=== PATIENT | male | born 1970 | race Caucasian/White ===

== ENCOUNTER 2017-02-04 10:36 | Inpatient (IN) | payer OTHER, MEDICARE ==
[2017-02-04] VITALS (7 sets, daily range): BP systolic 95–122; BP diastolic 54–94; PULSE 108–118; RESP 16–20; TEMP 99.7–100.6; O2SAT 97–98
[~2017-02-04] VITALS: Ht 175.3 cm; Wt 75.4 kg
[~2017-02-04 10:36] MED LIST: CLON1 PO; DEPA250T PO; IBUP-238 PO; LAMO100 PO; METO100T PO; NEUR600T PO; PAXI20TA26 PO
[2017-02-04] MEDS ORDERED: ONDANSETRON HCL 4 MG/2 ML VIAL IV PUSH ONE (11:15)
[2017-02-04] MEDS ORDERED: SODIUM CHLOR 0.9% 1000 ML INJ 1,000 ML IV ONE ×2 (11:15→15:30)
[2017-02-04] MEDS ORDERED: ACETAMINOPHEN 325 MG TAB PO ONE (11:15)
[2017-02-04] MEDS ORDERED: SODIUM CHLORIDE 0.9% FLUSH 10 ML FLUSH IVF PRN (11:15)
--- NOTE | 2017-02-04 11:20 | PD ---
HPI Chief Complaint: General Weakness Time Seen by Provider: 11:06 Travel History International Travel<30 days: No Contact w/Intl Traveler<30days: No Traveled to known affect area: No History of Present Illness HPI 46-year-old male presents to the emergency department for evaluation of generalized weakness, nausea, vomiting, diarrhea, fever that started this morning. Patient reports 3-4 episodes of vomiting and diarrhea. No blood in his stool or emesis. Patient reports generalized weakness, but no syncope. He denies any chest pain. He does report some mild shortness of breath and mild cough. He reports abdominal discomfort, but no pain. Patient did not know he had a fever and has not taken anything for his fever. Patient has not had an influenza vaccination this year. He reports history of hypertension and hyperlipidemia, but is not currently on any prescribed medications. He denies any IV drug use. He reports no pain at this time. No exacerbating or alleviating factors. He does state that he feels dehydrated. Moderate severity. PFSH Past Medical History Arthritis: Yes (INFLAMED ARTHRITIC DISC.) Asthma: Yes Blood Disorders: No Anxiety: Yes Depression: Yes Cancer: No Cardiovascular Problems: Yes Diabetes: No Endocrine: No Genitourinary: No Headaches: Yes Hypertension: Yes Immune Disorder: No Implanted Vascular Access Dvce: No Musculoskeletal: Yes (LEGS AND ARMS ARE WEAK. WALKS WITH CANE AT TIMES.) Neurologic: Yes Psychiatric: Yes Reproductive: No Respiratory: Yes Seizures: Yes (LAST SEIZURE WAS 2 1/2 YEARS AGO.) Tetanus Vaccination: > 5 Years Influenza Vaccination: No Past Surgical History Surgical History: No Previous Surgery Other Surgery: No Social History Alcohol Use: Yes ("I DRINIK NOS AND THEN." PT DRANK 5 BEERS TONIGHT.) Tobacco Use: No (QUIT SMOKING 1997.) Substance Use: No Allergies-Medications (Allergen,Severity, Reaction): Coded Allergies: No Known Allergies (Verified Adverse Reaction, Unknown, 02/04/17) Reported Meds & Prescriptions Reported Meds & Active Scripts Active Review of Systems Except as stated in HPI: all other systems reviewed are Neg Physical Exam Narrative GENERAL: Well-nourished, well-developed male patient, temp 100.6. SKIN: Focused skin assessment warm/dry. HEAD: Normocephalic. Atraumatic. ENT: Mucosa pink and moist. No erythema or exudates. No uvular edema. No uvular , palatal, or tonsillar deviation. Airway patent. Nasal turbinates appear normal without nasal blood, purulent drainage or septal hematoma. Bilateral tympanic membranes are clear without erythema or perforation. EYES: No scleral icterus. No injection or drainage. NECK: Supple, trachea midline. No JVD or lymphadenopathy. CARDIOVASCULAR: Regular rate and rhythm without murmurs, gallops, or rubs. RESPIRATORY: Breath sounds equal bilaterally. No accessory muscle use. Lung sounds are clear to auscultation. GASTROINTESTINAL: Abdomen soft, non-tender, nondistended. No abdominal pain to palpation. MUSCULOSKELETAL: No cyanosis, or edema. BACK: Nontender without obvious deformity. No CVA tenderness. Data Data Last Documented VS Vital Signs Date Time Temp Pulse Resp B/P (MAP) Pulse Ox O2 Delivery O2 Flow Rate FiO2 02/04/17 15:12 118 18 96/55 (69) 97 Room Air 02/04/17 10:38 100.6 Orders Orders Complete Blood Count With Diff (02/04/17 11:15) Comprehensive Metabolic Panel (02/04/17 11:15) Urinalysis - C+S If Indicated (02/04/17 11:15) Lipase (02/04/17 11:15) Iv Access Insert/Monitor (02/04/17 11:15) Ecg Monitoring (02/04/17 11:15) Oximetry (02/04/17 11:15) Ondansetron Inj (Zofran Inj) (02/04/17 11:15) Sodium Chlor 0.9% 1000 Ml Inj (Ns 1000 M (02/04/17 11:15) Sodium Chloride 0.9% Flush (Ns Flush) (02/04/17 11:15) Blood Culture (02/04/17 11:15) Chest, Single Ap (02/04/17 11:15) Acetaminophen (Tylenol) (02/04/17 11:15) Lactic Acid Sepsis Protocol (02/04/17 11:15) Influenzae A/B Antigen (02/04/17 11:15) Ct Abd/Pel W Iv Contrast(Rout) (02/04/17 ) Iohexol 350 Inj (Omnipaque 350 Inj) (02/04/17 14:33) Sodium Chlor 0.9% 1000 Ml Inj (Ns 1000 M (02/04/17 15:30) Metronidazole 500 Mg Inj (Flagyl 500 Mg (02/04/17 15:30) Ciprofloxacin 400 Mg Premix (Cipro 400 M (02/04/17 15:30) Admit Order (Ed Use Only) (02/04/17 16:03) Labs Laboratory Tests Test 02/04/17 11:00 02/04/17 11:25 02/04/17 12:07 White Blood Count 12.0 TH/MM3 Red Blood Count 5.31 MIL/MM3 Hemoglobin 16.7 GM/DL Hematocrit 47.8 % Mean Corpuscular Volume 89.9 FL Mean Corpuscular Hemoglobin 31.4 PG Mean Corpuscular Hemoglobin Concent 34.9 % Red Cell Distribution Width 12.7 % Platelet Count 216 TH/MM3 Mean Platelet Volume 8.9 FL CBC Comment AUTO DIFF Differential Total Cells Counted 100 Neutrophils % (Manual) 74 % Band Neutrophils % 15 % Lymphocytes % 2 % Monocytes % 9 % Neutrophils # (Manual) 10.7 TH/MM3 Differential Comment FINAL DIFF MANUAL Platelet Estimate NORMAL Platelet Morphology Comment NORMAL Red Cell Morphology Comment NORMAL Blood Urea Nitrogen 16 MG/DL Creatinine 0.90 MG/DL Random Glucose 104 MG/DL Total Protein 8.3 GM/DL Albumin 4.2 GM/DL Calcium Level 9.0 MG/DL Alkaline Phosphatase 109 U/L Aspartate Amino Transf (AST/SGOT) 30 U/L Alanine Aminotransferase (ALT/SGPT) 28 U/L Total Bilirubin 0.4 MG/DL Sodium Level 139 MEQ/L Potassium Level 4.0 MEQ/L Chloride Level 103 MEQ/L Carbon Dioxide Level 28.9 MEQ/L Anion Gap 7 MEQ/L Estimat Glomerular Filtration Rate 92 ML/MIN Lipase 221 U/L Lactic Acid Level 1.2 mmol/L Urine Color YELLOW Urine Turbidity CLEAR Urine pH 5.5 Urine Specific [place] 1.023 Urine Protein NEG mg/dL Urine Glucose (UA) NEG mg/dL Urine Ketones NEG mg/dL Urine Occult Blood TRACE Urine Nitrite NEG Urine Bilirubin NEG Urine Urobilinogen LESS THAN 2.0 MG/DL Urine Leukocyte Esterase NEG Urine RBC 1 /hpf Urine WBC LESS THAN 1 /hpf Urine Squamous Epithelial Cells <1 /hpf Urine Mucus FEW /lpf Microscopic Urinalysis Comment CULT NOT INDICATED MDM Medical Decision Making Medical Screen Exam Complete: Yes Emergency Medical Condition: Yes Medical Record Reviewed: Yes Interpretation(s) Last Impressions Chest X-Ray 02/04/17 1115 Signed Impressions: Service Date/Time: Saturday, February 04, 2017 11:35 - CONCLUSION: 1. No acute cardiopulmonary disease. Adan Alvarado MD Abdomen/Pelvis CT 02/04/17 0000 Signed Impressions: Service Date/Time: Saturday, February 04, 2017 14:16 - CONCLUSION: 1. Multiple loops of nondistended fluid-filled small bowel with questionable focal small bowel wall thickening involving a loop of jejunum in the left upper quadrant. Overall, findings are most consistent with enteritis. Pattern would be atypical for inflammatory bowel disease. 2. Appendix is visualized and normal. Adan Alvarado MD Differential Diagnosis Gastroenteritis versus viral syndrome versus influenza versus electrolyte abnormality versus dehydration Narrative Course 46-year-old male presents to the emergency department for evaluation of fever, generalized weakness, nausea, vomiting, diarrhea that started today. IV access was established. CBC, CMP, UA, lipase, lactic acid, and influenza, blood cultures 2, chest x-ray are ordered and pending. Patient is given normal saline 1 L IV bolus, Zofran 4 mg IV, Tylenol 650 mg by mouth. CBC shows leukocytosis 12.0 with 15 band neutrophils. CMP is unremarkable. Lipase is 221. Lactic acid is 1.2. UA is negative for acute infection. Influenza is negative. Chest x-ray shows no acute cardiopulmonary abnormality. Ct abdomen/pelvis is ordered due to bandemia and shows Multiple loops of nondistended fluid-filled small bowel with questionable focal small bowel wall thickening involving a loop of jejunum in the left upper quadrant. Overall, findings are most consistent with enteritis. Pattern would be atypical for inflammatory bowel disease; Appendix is visualized and normal. Patient is given by mouth challenge. He is able to tolerate fluids. Patient is now tachycardic, HR 130 and hypotensive, 96/65. Patient is given cipro 400 mg IV, Flagyl 500 mg IV, NS 1 L IV bolus. He will be admitted. Sepsis Criteria SIRS Criteria (2 or more): Heart rate over 90, WBC > 55725, < 4000 or > 10% bands Sepsis Criteria (SIRS+source): Infect source susp/known Diagnosis Primary Impression: Enteritis Admitting Information Admitting Physician Requests: Admit Perla Varghese Feb 04, 2017 11:20
[2017-02-04 11:35] LABS: HEMATOCRIT 47.8 % (39.0-51.0); HEMOGLOBIN 16.7 GM/DL (13.0-17.0); MEAN CELL VOLUME 89.9 FL (80.0-100.0); MEAN CORPUSCULAR HEMOGLOBIN 31.4 PG (27.0-34.0); MEAN CORPUSCULAR HGB CONC 34.9 % (32.0-36.0); MEAN PLATELET VOLUME 8.9 FL (7.0-11.0); PLATELET COUNT 216 TH/MM3 (150-450); RED BLOOD COUNT 5.31 MIL/MM3 (4.50-5.90); RED CELL DISTRIBUTION WIDTH 12.7 % (11.6-17.2)
[2017-02-04 11:52] LABS: ALBUMIN 4.2 GM/DL (3.4-5.0); AST (GOT) 30 U/L (15-37); BICARBONATE 28.9 MEQ/L (21.0-32.0); BLOOD UREA NITROGEN 16 MG/DL (7-18); CHLORIDE 103 MEQ/L (98-107); GLOMERULAR FILTRATION RATE 92 ML/MIN (>89); GLUCOSE,RANDOM 104 MG/DL (74-106); LIPASE 221 U/L (73-393); SODIUM (NA) 139 MEQ/L (136-145)
[2017-02-04 11:53] LABS: ALT (GPT) 28 U/L (12-78)
[2017-02-04 11:56] LABS: ALKALINE PHOSPHATASE 109 U/L (45-117); TOTAL BILIRUBIN ADULT 0.4 MG/DL (0.2-1.0); TOTAL PROTEIN 8.3 GM/DL (6.4-8.2)
--- NOTE | 2017-02-04 12:10 | RADRPT ---
EXAM DATE/TIME: 02/04/2017 11:35 [facility] COMPARISON: No previous studies available for comparison. INDICATIONS : Patient complains of cough and shortness of breath. MEDICAL HISTORY : None. SURGICAL HISTORY : None. ENCOUNTER: Initial ACUITY: 1 day PAIN SCORE: 0/10 LOCATION: chest FINDINGS: A single view of the chest demonstrates the lungs to be symmetrically aerated without evidence of mas s, infiltrate or effusion. The cardiomediastinal contours are unremarkable. Focal deformity of the l eft posterior consistent with healed fracture. CONCLUSION: 1. No acute cardiopulmonary disease. Adan Alvarado MD on February 04, 2017 at 12:07 Board Certified Radiologist. This report was verified electronically.
[2017-02-04 12:19] LABS: BANDS 15 % (0-6); LYMPHOCYTES 2 % (9-44); MONOCYTES 9 % (0-8); NEUTROPHIL # MANUAL DIFF 10.7 TH/MM3 (1.8-7.7); POLYS (SEG NEUTROPHILS) 74 % (16-70)
[2017-02-04 12:29] LABS: BILIRUBIN, URINE NEG (NEG); BLOOD, URINE TRACE (NEG); GLUCOSE,URINE NEG (NEG); KETONE, URINE NEG (NEG); MUCUS URINE FEW /lpf (OCC); NITRITE,URINE NEG (NEG); PH, URINE 5.5 (5.0-8.5); SQUAMOUS EPITHELIAL CELL URINE <1 /hpf (0-5); URINE COLOR YELLOW (YELLW/STRAW); URINE LEUKOCYTE ESTERASE NEG (NEG)
[2017-02-04] MEDS ORDERED: IOHEXOL 350 MG/ML 10 ML VIAL (for RAD DIAG) IVCONTRAST ONE (14:33)
--- NOTE | 2017-02-04 15:01 | RADRPT ---
EXAM DATE/TIME: 02/04/2017 14:16 [facility] COMPARISON: No previous studies available for comparison. INDICATIONS : Nausea, vomiting and diarrhea today. IV CONTRAST: 72 cc Omnipaque 350 (iohexol) IV ORAL CONTRAST: No oral contrast ingested. RADIATION DOSE: 6.64 CTDIvol (mGy) MEDICAL HISTORY : Hypertension. SURGICAL HISTORY : None. ENCOUNTER: Initial ACUITY: 1 day PAIN SCALE: 2/10 LOCATION: Bilateral lower quadrant TECHNIQUE: Volumetric scanning of the abdomen and pelvis was performed. Using automated exposure control and ad justment of the mA and/or kV according to patient size, radiation dose was kept as low as reasonably achievable to obtain optimal diagnostic quality images. DICOM format image data is available electro nically for review and comparison. FINDINGS: LOWER LUNGS: The visualized lower lungs are clear. LIVER: Homogeneous density without lesion. There is no dilation of the biliary tree. Gallbladder is moderat jeff distended but otherwise unremarkable by CT. SPLEEN: Normal size without lesion. PANCREAS: Within normal limits. KIDNEYS: Kidneys demonstrate symmetrical enhancement without evidence for radiopaque renal calculi or hydronep hrosis. There is a small subcentimeter hypodense cystic lesion in the inferior pole of the right kidn ey which is too small to fully characterize. ADRENAL GLANDS: Within normal limits. VASCULAR: There is no aortic aneurysm. BOWEL/MESENTERY: Multiple loops of nondistended fluid-filled small bowel throughout the abdomen. Questionable subtle s mall bowel wall thickening involving a focal loop of jejunum in the left upper quadrant. Appendix is visualized and normal in appearance. ABDOMINAL WALL: Within normal limits. RETROPERITONEUM: There is no lymphadenopathy. BLADDER: No wall thickening or mass. REPRODUCTIVE: Within normal limits. INGUINAL: There is no lymphadenopathy or hernia. MUSCULOSKELETAL: Within normal limits for patient age. CONCLUSION: 1. Multiple loops of nondistended fluid-filled small bowel with questionable focal small bowel wall t hickening involving a loop of jejunum in the left upper quadrant. Overall, findings are most consiste nt with enteritis. Pattern would be atypical for inflammatory bowel disease. 2. Appendix is visualized and normal. Adan Alvarado MD on February 04, 2017 at 14:51 Board Certified Radiologist. This report was verified electronically.
[2017-02-04] MEDS ORDERED: ONDA4TAB7 SL (15:10)
[2017-02-04] MEDS ORDERED: CIPR500T2 PO (15:10)
[2017-02-04] MEDS ORDERED: METR-1 PO (15:10)
[2017-02-04] MEDS ORDERED: CIPROFLOXACIN 400 MG PREMIX 200 ML IV ONE (15:30)
[2017-02-04] MEDS ORDERED: metroNIDAZOLE 500 MG INJ 100 ML IV ONE (15:30)
[2017-02-04] MEDS ORDERED: SODIUM CHLORIDE 0.9% FLUSH 10 ML FLUSH IV FLUSH PRN ×2 (16:15)
--- NOTE | 2017-02-04 16:28 | HHI.HP ---
HPI Service [facility] Hospitalists Primary Care Physician Unknown Admission Diagnosis enteritis, sepsis Diagnoses: Chief Complaint: Generalized weakness Nausea, vomiting Diarrhea Travel History International Travel<30 Days: No Contact w/Intl Traveler <30 Da: No Traveled to Known Affected Are: No Sepsis Criteria SIRS Criteria (2 or more): Heart rate over 90, WBC > 42148, < 4000 or > 10% bands Sepsis Criteria (SIRS+source): Infect source susp/known Severe Sepsis (+one): Hypotension Criteria Outcome: Meets sepsis criteria History of Present Illness Written by Blessing Montoya, acting as scribe for Dr. Vaughn on 02/04/17 at 16: 24. This is a 46 yo male with a PMHX significant for legal blindness, hx of intermittent explosive disorder and neuropathy no longer requiring medications who presents to [facility] with complaints of generalized weakness, abdominal pain, diarrhea, nausea and vomiting for the past day. Patient reports waking up this morning feeling more tired but otherwise normal. He ate breakfast and then went to the mall per his usual routine. Shortly after arriving at the mall, he developed sudden onset of diffuse abdominal pain, shakiness, weakness and intractable vomiting and diarrhea. He denies seeing in blood in the stool or vomit but he does not see very well due to being legally blind. He states some days he is able to see better than others but today he is not able to see very well. Patient reports feeling feverish this morning but did not record a temperature. Patient states he has not felt well for the past few months due to increased fatigue. Patient reports eating pork last night but no one else is sick who ate the same dinner. He denies any change in his diet. In the ED, CT abd/pelvis was done showing multiple loops of nondistended fluid-filled small bowel with questionable focal small bowel wall thickening involving a loop of jejunum in the left upper quadrant. Overall, findings are most consistent with enteritis. Patient has a temperature of 100.6 and CBC revealed elevated white count and bandemia. Patient was also found to be hypotensive. Review of Systems Except as stated in HPI: all other systems reviewed are Neg Past Family Social History Past Medical History Legally blind Hx of intermittent explosive disorder Hx of neuropathy no longer treated with medications Past Surgical History No previous surgeries in the past Reported Medications Patient denies taking any medications at home Allergies: Coded Allergies: No Known Allergies (Verified Adverse Reaction, Unknown, 02/04/17) Active Ordered Medications Current Medications Medications (Trade) Dose Ordered Sig/Cl[place]ord Route Start Time Stop Time Status Last Admin Sodium Chloride 1,000 ml @ 999 mls/hr BOLUS ONCE IV 02/04/17 15:30 02/04/17 16:30 02/04/17 15:19 Metronidazole 100 ml @ 100 mls/hr ONCE ONCE IV 02/04/17 15:30 02/04/17 16:29 02/04/17 15:20 Ciprofloxacin/ Dextrose 200 ml @ 200 mls/hr ONCE ONCE IV 02/04/17 15:30 02/04/17 16:29 02/04/17 15:59 (NS Flush) 2 ml UNSCH PRN IV FLUSH 02/04/17 16:15 (NS Flush) 2 ml BID IV FLUSH 02/04/17 21:00 Sodium Chloride 1,000 ml @ 100 mls/hr Q10H IV 02/04/17 16:11 (NS Flush) 2 ml UNSCH PRN IV FLUSH 02/04/17 16:15 (NS Flush) 2 ml BID IV FLUSH 02/04/17 21:00 (Lactinex) 1 tab Q8H PO 02/04/17 16:15 UNV (Zofran Inj) 4 mg Q6H PRN IV PUSH 02/04/17 16:15 UNV (Lovenox Inj) 40 mg Q24H SQ 02/04/17 16:15 UNV Ciprofloxacin/ Dextrose 200 ml @ 200 mls/hr Q12H IV 02/04/17 16:30 UNV Metronidazole 100 ml @ 100 mls/hr Q6H IV 02/04/17 16:30 UNV Family History DM Dementia Anxiety Social History Patient quit smoking 20 years ago. Patient reports occasional EtOH use. Patient denies any illicit drug use. Physical Exam Vital Signs Vital Signs Date Time Temp Pulse Resp B/P (MAP) Pulse Ox O2 Delivery O2 Flow Rate FiO2 02/04/17 15:12 118 18 96/55 (69) 97 Room Air 02/04/17 13:00 108 18 106/55 (72) 97 Room Air 02/04/17 10:54 108 18 98 Room Air 02/04/17 10:38 100.6 109 16 122/94 (103) 98 Physical Exam GENERAL: This is a well-nourished, well-developed patient, in no apparent distress. Awake and alert. SKIN: No rashes, ecchymoses or lesions. Cool and dry. HEAD: Atraumatic. Normocephalic. No temporal or scalp tenderness. EYES: Pupils equal round and reactive. No scleral icterus. No injection or drainage. Patient is legally blind. ENT: Nose without bleeding or purulent drainage. Throat without erythema, tonsillar hypertrophy or exudate. Uvula midline. Airway patent. Dry mucus membranes. NECK: Trachea midline. No JVD or lymphadenopathy. Supple, nontender, no meningeal signs. CARDIOVASCULAR: Tachycardic without murmurs, gallops, or rubs. RESPIRATORY: Clear to auscultation. Breath sounds equal bilaterally. No wheezes , rales, or rhonchi. GASTROINTESTINAL: Abdomen soft, nondistended. (+)diffuse tenderness to palpation. No hepato-splenomegaly, or palpable masses. No guarding. MUSCULOSKELETAL: Extremities without clubbing, cyanosis, or edema. No joint tenderness, effusion, or edema noted. No calf tenderness. NEUROLOGICAL: Awake and alert. Able to move all extremities spontaneously. Motor and sensory function grossly intact. No focal neurologic findings appreciated. Normal speech. Laboratory Laboratory Tests Test 02/04/17 11:00 02/04/17 11:25 02/04/17 12:07 White Blood Count 12.0 Red Blood Count 5.31 Hemoglobin 16.7 Hematocrit 47.8 Mean Corpuscular Volume 89.9 Mean Corpuscular Hemoglobin 31.4 Mean Corpuscular Hemoglobin Concent 34.9 Red Cell Distribution Width 12.7 Platelet Count 216 Mean Platelet Volume 8.9 CBC Comment AUTO DIFF Differential Total Cells Counted 100 Neutrophils % (Manual) 74 Band Neutrophils % 15 Lymphocytes % 2 Monocytes % 9 Neutrophils # (Manual) 10.7 Differential Comment FINAL DIFF MANUAL Platelet Estimate NORMAL Platelet Morphology Comment NORMAL Red Cell Morphology Comment NORMAL Blood Urea Nitrogen 16 Creatinine 0.90 Random Glucose 104 Total Protein 8.3 Albumin 4.2 Calcium Level 9.0 Alkaline Phosphatase 109 Aspartate Amino Transf (AST/SGOT) 30 Alanine Aminotransferase (ALT/SGPT) 28 Total Bilirubin 0.4 Sodium Level 139 Potassium Level 4.0 Chloride Level 103 Carbon Dioxide Level 28.9 Anion Gap 7 Estimat Glomerular Filtration Rate 92 Lipase 221 Lactic Acid Level 1.2 Urine Color YELLOW Urine Turbidity CLEAR Urine pH 5.5 Urine Specific [place] 1.023 Urine Protein NEG Urine Glucose (UA) NEG Urine Ketones NEG Urine Occult Blood TRACE Urine Nitrite NEG Urine Bilirubin NEG Urine Urobilinogen LESS THAN 2.0 Urine Leukocyte Esterase NEG Urine RBC 1 Urine WBC LESS THAN 1 Urine Squamous Epithelial Cells <1 Urine Mucus FEW Microscopic Urinalysis Comment CULT NOT INDICATED Date/Time Source Procedure Growth Status 02/04/17 11:25 Blood Peripheral Aerobic Blood Culture Pending Received 02/04/17 11:25 Blood Peripheral Anaerobic Blood Culture Pending Received 02/04/17 12:00 Nasal Aspirate Influenza Types A,B Antigen (BOB) - Final NEGATIVE FOR FLU A AND B ANTIGEN.... Complete Result Diagram: 02/04/17 1100 02/04/17 1100 Imaging Last Impressions Chest X-Ray 02/04/17 1115 Signed Impressions: Service Date/Time: Saturday, February 04, 2017 11:35 - CONCLUSION: 1. No acute cardiopulmonary disease. Adan Alvarado MD Abdomen/Pelvis CT 02/04/17 0000 Signed Impressions: Service Date/Time: Saturday, February 04, 2017 14:16 - CONCLUSION: 1. Multiple loops of nondistended fluid-filled small bowel with questionable focal small bowel wall thickening involving a loop of jejunum in the left upper quadrant. Overall, findings are most consistent with enteritis. Pattern would be atypical for inflammatory bowel disease. 2. Appendix is visualized and normal. Adan Alvarado MD Caproni VTE Risk Assessment Caprini VTE Risk Assessment: No/Low Risk (score <= 1) Caprini Risk Assessment Model Point Value = 1 Point Value = 2 Point Value = 3 Point Value = 5 Age 41-60 Minor surgery BMI > 25 kg/m2 Swollen legs Varicose veins or History of unexplained or recurrent spontaneous Oral contraceptives or hormone replacement Sepsis (< 1 month) Serious lung disease, including pneumonia (< 1 month) Abnormal pulmonary function Acute myocardial infarction Congestive heart failure (< 1 month) History of inflammatory bowel disease Medical patient at bed rest Age 61-74 Arthroscopic surgery Major open surgery (> 45 min) Laparoscopic surgery (> 45 min) Malignancy Confined to bed (> 72 hours) Immobilizing plaster cast Central venous access Age >= 75 History of VTE Family history of VTE Factor V Leiden Prothrombin [id number] Lupus anticoagulant Anticardiolipin antibodies Elevated serum homocysteine Heparin-induced thrombocytopenia Other congenital or acquired thrombophilia Stroke (< 1 month) Elective arthroplasty Hip, pelvis, or leg fracture Acute spinal cord injury (< 1 month) Prophylaxis Regimen Total Risk Factor Score Risk Level Prophylaxis Regimen 0-1 Low Early ambulation 2 Moderate Order ONE of the following: *Sequential Compression Device (SCD) *Heparin 5000 units SQ BID 3-4 Higher Order ONE of the following medications: *Heparin 5000 units SQ TID *Enoxaparin/Lovenox 40 mg SQ daily (WT < 150 kg, CrCl > 30 mL/min) *Enoxaparin/Lovenox 30 mg SQ daily (WT < 150 kg, CrCl > 10-29 mL/min) *Enoxaparin/Lovenox 30 mg SQ BID (WT < 150 kg, CrCl > 30 mL/min) AND/OR *Sequential Compression Device (SCD) 5 or more Highest Order ONE of the following medications: *Heparin 5000 units SQ TID (Preferred with Epidurals) *Enoxaparin/Lovenox 40 mg SQ daily (WT < 150 kg, CrCl > 30 mL/min) *Enoxaparin/Lovenox 30 mg SQ daily (WT < 150 kg, CrCl > 10-29 mL/min) *Enoxaparin/Lovenox 30 mg SQ BID (WT < 150 kg, CrCl > 30 mL/min) AND *Sequential Compression Device (SCD) Assessment and Plan Assessment and Plan 46 yo male with a PMHX significant for legal blindness, hx of intermittent explosive disorder and neuropathy no longer requiring medications who presents to [facility] with complaints of generalized weakness, abdominal pain, diarrhea, nausea and vomiting for the past day. Patient meets sepsis criteria with elevated white count, bandemia, tachycardia with HR of 115, hypotension with BP 96/55 and GI source of enteritis - suspect gastroenteritis - CT abd/pelvis - Multiple loops of nondistended fluid-filled small bowel with questionable focal small bowel wall thickening involving a loop of jejunum in the left upper quadrant. Overall, findings are most consistent with enteritis , images personally reviewed - CXR unremarkable, images personally reviewed - influenza negative - lactic acid 1.2 - lipase 221 - patient given IV Flagyl and Cipro in the ED. Continue. - Patient given 2L of IVF in the ED. Continue IVF hydration. - Cdiff and stool studies ordered - monitor white count - monitor heart rate - follow up on blood culture results - regular diet - lactobacillus TID - IV Zofran prn - pain management Legal blindness - fall precautions - patient lives with friends who help care for him - Consult case management DVT prophylaxis - Lovenox 40mg sq This note was transcribed by YULIA Marsh . I, Dr. Jacy Vaughn personally performed the history, physical exam, and medical decision making; and confirmed the accuracy of the information in the transcribed note. Authenticated by Dr. Jacy Vaughn on 02/04/17 at 16:24. Code Status Full code Discussed Condition With ED physician, patient Physician Certification 2 Midnight Certification Type: Admission for Inpatient Services Order for Inpatient Services The services are ordered in accordance with Medicare regulations or non- Medicare payer requirements, as applicable. In the case of services not specified as inpatient-only, they are appropriately provided as inpatient services in accordance with the 2-midnight benchmark. Estimated LOS (days): 3 3 days is the estimated time the patient will need to remain in the hospital, assuming treatment plan goals are met and no additional complications. Post-Hospital Plan: Not yet determined Blessing Montoya Feb 04, 2017 16:28 Jacy Vaughn MD Feb 04, 2017 17:42
[2017-02-04] MEDS: SODIUM CHLOR 0.9% 1000 ML INJ 1,000 ML IV SCH ×2 (16:36→18:35)
[2017-02-04] MEDS: ENOXAPARIN SODIUM 40 MG/0.4 ML SYRINGE SQ SCH (18:34)
[2017-02-04] MEDS: LACTOBACILLUS ACIDOPHILUS TAB PO SCH (18:34)
[2017-02-04] MEDS: metroNIDAZOLE 500 MG INJ 100 ML IV SCH ×2 (18:35→23:25)
[2017-02-04] MEDS: CIPROFLOXACIN 400 MG PREMIX 200 ML IV SCH (19:46)
[2017-02-04] MEDS: SODIUM CHLORIDE 0.9% FLUSH 10 ML FLUSH IV FLUSH SCH ×2 (19:47)
[2017-02-04] MEDS ORDERED: metroNIDAZOLE 500 MG TAB PO SCH (21:00)
[2017-02-05] VITALS (10 sets, daily range): BP systolic 95–117; BP diastolic 53–67; PULSE 77–108; RESP 16–20; TEMP 98.3–100.9; O2SAT 94–95
[2017-02-05] MEDS: LACTOBACILLUS ACIDOPHILUS TAB PO SCH ×3 (01:49→16:50)
[2017-02-05] MEDS: ACETAMINOPHEN 325 MG TAB PO PRN ×2 (04:26→23:35)
[2017-02-05] MEDS: metroNIDAZOLE 500 MG INJ 100 ML IV SCH ×4 (04:28→23:35)
[2017-02-05] MEDS: CIPROFLOXACIN 400 MG PREMIX 200 ML IV SCH ×2 (05:32→18:17)
[2017-02-05 07:09] LABS: AUTOMATED NEUTROPHIL # 6.2 TH/MM3 (1.8-7.7); BASOPHIL % 0.4 % (0.0-2.0); HEMATOCRIT 37.8 % (39.0-51.0); HEMOGLOBIN 13.1 GM/DL (13.0-17.0); LYMPH % 5.6 % (9.0-44.0); LYMPHOCYTE # 0.4 TH/MM3 (1.0-4.8); MEAN CELL VOLUME 88.3 FL (80.0-100.0); MEAN CORPUSCULAR HEMOGLOBIN 30.6 PG (27.0-34.0); MEAN CORPUSCULAR HGB CONC 34.6 % (32.0-36.0); MEAN PLATELET VOLUME 8.8 FL (7.0-11.0); MONO % 7.3 % (0.0-8.0); MONOCYTE # 0.5 TH/MM3 (0-0.9); NEUT % 86.7 % (16.0-70.0); PLATELET COUNT 171 TH/MM3 (150-450); RED BLOOD COUNT 4.28 MIL/MM3 (4.50-5.90); RED CELL DISTRIBUTION WIDTH 12.6 % (11.6-17.2); WHITE BLOOD COUNT 7.1 TH/MM3 (4.0-11.0)
[2017-02-05 07:40] LABS: BICARBONATE 24.2 MEQ/L (21.0-32.0); CALCIUM 7.7 MG/DL (8.5-10.1); CREATININE 0.92 MG/DL (0.60-1.30)
[2017-02-05] MEDS: SODIUM CHLORIDE 0.9% FLUSH 10 ML FLUSH IV FLUSH SCH ×3 (09:00→23:37)
[2017-02-05] MEDS ORDERED: CIPROFLOXACIN 500 MG TAB PO SCH (09:00)
[2017-02-05] MEDS ORDERED: POTASSIUM CHLORIDE 20 MEQ CONTROLLED RELEASE TAB PO ONE (09:45)
[2017-02-05] MEDS: SODIUM CHLOR 0.9% 1000 ML INJ 1,000 ML IV SCH (10:15)
--- NOTE | 2017-02-05 14:02 | HHI.PR ---
Subjective Remarks Patient seen earlier this morning. He still reports some nausea but no vomiting this morning. Potassium is low Objective Vitals Vital Signs Date Time Temp Pulse Resp B/P (MAP) Pulse Ox O2 Delivery O2 Flow Rate FiO2 02/05/17 12:02 98.6 89 20 110/55 (73) 94 02/05/17 12:00 83 02/05/17 08:30 Room Air 02/05/17 08:02 98.3 88 20 109/53 (71) 95 02/05/17 08:00 90 02/05/17 04:00 Room Air 02/05/17 04:00 100.0 101 16 101/53 (69) 94 02/05/17 04:00 105 02/05/17 02:29 21 02/05/17 00:00 100.9 106 16 95/53 (67) 94 02/05/17 00:00 108 02/05/17 00:00 Room Air 02/04/17 20:00 99.7 113 17 102/54 (70) 98 02/04/17 20:00 111 02/04/17 20:00 Room Air 02/04/17 18:46 100.5 111 20 101/55 (70) 97 02/04/17 18:33 02/04/17 17:13 112 18 95/54 (68) 97 Room Air 02/04/17 16:53 97 21 02/04/17 15:12 118 18 96/55 (69) 97 Room Air I/O 02/04/17 02/04/17 02/04/17 02/05/17 02/05/17 02/05/17 07:00 15:00 23:00 07:00 15:00 23:00 Intake Total 1000 ml 1600 ml 320 ml Output Total 250 ml Balance 1000 ml 1600 ml 70 ml Intake Oral 120 ml IV Total 1000 ml 1600 ml 200 ml Output Urine Total 250 ml # Voids 1 # Bowel Movements 2 Result Diagram: 02/05/1763902/05/1740 Objective Remarks GENERAL: Patient is blind. No acute distress. CARDIOVASCULAR: Normal rate and regular rhythm without murmurs, gallops, or rubs. RESPIRATORY: Good respiratory efforts. Breath sounds equal and clear to auscultation bilaterally. GASTROINTESTINAL: Abdomen soft, non-tender, non-distended. Normal active bowel sounds MUSCULOSKELETAL: Extremities without cyanosis, or edema. NEURO: Alert & Oriented x4 to person, place, time, situation. Normal speech PSYCH: Appropriate mood and affect. A/P Assessment and Plan 46 yo male with a PMHX significant for legal blindness, hx of intermittent explosive disorder and neuropathy no longer requiring medications who presents to [facility] with complaints of generalized weakness, abdominal pain, diarrhea, nausea and vomiting for the past day. Patient meets sepsis criteria with elevated white count, bandemia, tachycardia with HR of 115, hypotension with BP 96/55 and GI source of enteritis - suspect gastroenteritis - CT abd/pelvis - Multiple loops of nondistended fluid-filled small bowel with questionable focal small bowel wall thickening involving a loop of jejunum in the left upper quadrant. Overall, findings are most consistent with enteritis - Continue Flagyl and Cipro - Continue IVF hydration. - follow up on blood culture results - regular diet - lactobacillus TID - IV Zofran prn - pain management Legal blindness - fall precautions - patient lives with friends who help care for him - case management DVT prophylaxis - Lovenox 40mg sq Discharge Planning Continue to monitor. Plan to transition to oral antibiotics in the morning. If he continues to improve, he may be discharged tomorrow. Leonila Corrales MD Feb 05, 2017 14:02
[2017-02-05] MEDS: ENOXAPARIN SODIUM 40 MG/0.4 ML SYRINGE SQ SCH (16:51)
[2017-02-06] VITALS (12 sets, daily range): BP systolic 102–129; BP diastolic 55–65; PULSE 69–96; RESP 18–20; TEMP 97.8–99.4; O2SAT 94–97
[2017-02-06] MEDS: LACTOBACILLUS ACIDOPHILUS TAB PO SCH ×3 (01:19→17:43)
[2017-02-06] MEDS: metroNIDAZOLE 500 MG INJ 100 ML IV SCH (05:10)
[2017-02-06] MEDS: CIPROFLOXACIN 400 MG PREMIX 200 ML IV SCH (06:34)
[2017-02-06] MEDS: ONDANSETRON HCL 4 MG/2 ML VIAL IV PUSH PRN (06:34)
[2017-02-06 07:43] LABS: BICARBONATE 25.6 MEQ/L (21.0-32.0); CALCIUM 8.3 MG/DL (8.5-10.1); CREATININE 0.65 MG/DL (0.60-1.30)
[2017-02-06] MEDS: SODIUM CHLORIDE 0.9% FLUSH 10 ML FLUSH IV FLUSH SCH ×2 (08:20→20:57)
[2017-02-06] MEDS: metroNIDAZOLE 500 MG TAB PO SCH ×2 (13:28→20:58)
--- NOTE | 2017-02-06 14:06 | HHI.PR ---
Subjective Remarks Patient is having diarrhea. Discussed with nursing staff. He had 3 watery bowel movement this morning. He denies abdominal pain. No nausea or vomiting. He is tolerating a diet. Objective Vitals Vital Signs Date Time Temp Pulse Resp B/P (MAP) Pulse Ox O2 Delivery O2 Flow Rate FiO2 02/06/17 12:01 99.4 74 20 111/58 (75) 94 02/06/17 08:01 98.2 84 20 129/61 (83) 97 02/06/17 04:49 78 02/06/17 00:01 80 02/06/17 00:00 98.8 96 20 102/58 (73) 96 02/05/17 21:30 77 02/05/17 20:00 98.8 80 18 117/67 (84) 95 02/05/17 16:01 98.7 96 20 101/59 (73) 95 02/05/17 16:00 84 I/O 02/05/17 02/05/17 02/05/17 02/06/17 02/06/17 02/06/17 07:00 15:00 23:00 07:00 15:00 23:00 Intake Total 320 ml 100 ml 1451 ml 100 ml Output Total 250 ml 600 ml 700 ml Balance 70 ml 100 ml 851 ml -600 ml Intake Oral 120 ml 720 ml IV Total 200 ml 100 ml 731 ml 100 ml Output Urine Total 250 ml 600 ml 700 ml # Voids 1 # Bowel Movements 2 1 0 Result Diagram: 02/05/17 0640 02/06/17 0650 Objective Remarks GENERAL: Patient is blind. No acute distress. CARDIOVASCULAR: Normal rate and regular rhythm without murmurs, gallops, or rubs. RESPIRATORY: Good respiratory efforts. Breath sounds equal and clear to auscultation bilaterally. GASTROINTESTINAL: Abdomen soft, non-tender, non-distended. Normal active bowel sounds MUSCULOSKELETAL: Extremities without cyanosis, or edema. NEURO: Alert & Oriented x4 to person, place, time, situation. Normal speech PSYCH: Appropriate mood and affect. A/P Assessment and Plan 46 yo male with a PMHX significant for legal blindness, hx of intermittent explosive disorder and neuropathy no longer requiring medications who presents to [facility] with complaints of generalized weakness, abdominal pain, diarrhea, nausea and vomiting for the past day. Patient meets sepsis criteria with elevated white count, bandemia, tachycardia with HR of 115, hypotension with BP 96/55 and GI source of enteritis - suspect gastroenteritis - CT abd/pelvis - Multiple loops of nondistended fluid-filled small bowel with questionable focal small bowel wall thickening involving a loop of jejunum in the left upper quadrant. Overall, findings are most consistent with enteritis - Continue Flagyl and Cipro - Continue IVF hydration. - follow up on blood culture results - regular diet - lactobacillus TID - IV Zofran prn - pain management - Patient is having diarrhea. Obtain stool cultures, rule out C. difficile. Legal blindness - fall precautions - patient lives with friends who help care for him - case management DVT prophylaxis - Lovenox 40mg sq Discharge Planning Continue to monitor. Transition to oral antibiotics today. Follow up on stool studies. Leonila Corrales MD Feb 06, 2017 14:06
[2017-02-06] MEDS: ENOXAPARIN SODIUM 40 MG/0.4 ML SYRINGE SQ SCH (17:44)
[2017-02-06] MEDS: CIPROFLOXACIN 500 MG TAB PO SCH (20:58)
[2017-02-06] MEDS: ACETAMINOPHEN 325 MG TAB PO PRN (20:58)
[2017-02-07] VITALS (7 sets, daily range): BP systolic 110–114; BP diastolic 55–72; PULSE 65–82; RESP 17–18; TEMP 97.5–98.7; O2SAT 96–97
[2017-02-07] MEDS ORDERED: diphenhydrAMINE HCL 25 MG CAP PO ONE (00:15)
[2017-02-07] MEDS ORDERED: diphenhydrAMINE HCL 25 MG CAP PO PRN (00:30)
[2017-02-07] MEDS: LACTOBACILLUS ACIDOPHILUS TAB PO SCH ×2 (00:49→08:42)
[2017-02-07] MEDS: metroNIDAZOLE 500 MG TAB PO SCH ×2 (05:13→13:02)
[2017-02-07 07:16] LABS: HEMATOCRIT 39.2 % (39.0-51.0); MEAN CELL VOLUME 88.4 FL (80.0-100.0); MEAN CORPUSCULAR HEMOGLOBIN 31.6 PG (27.0-34.0); MEAN CORPUSCULAR HGB CONC 35.8 % (32.0-36.0); MEAN PLATELET VOLUME 9.4 FL (7.0-11.0); PLATELET COUNT 183 TH/MM3 (150-450); RED BLOOD COUNT 4.44 MIL/MM3 (4.50-5.90); RED CELL DISTRIBUTION WIDTH 12.6 % (11.6-17.2); WHITE BLOOD COUNT 5.2 TH/MM3 (4.0-11.0)
[2017-02-07 07:24] LABS: CALCIUM 8.3 MG/DL (8.5-10.1); CREATININE 0.66 MG/DL (0.60-1.30)
[2017-02-07] MEDS: SODIUM CHLORIDE 0.9% FLUSH 10 ML FLUSH IV FLUSH SCH (08:17)
[2017-02-07] MEDS: CIPROFLOXACIN 500 MG TAB PO SCH (08:43)
[2017-02-07] MEDS ORDERED: METR-1 PO (13:35)
[2017-02-07] MEDS ORDERED: CIPR-9 PO (13:35)
--- NOTE | 2017-02-07 14:22 | HHI.DCPOC ---
Discharge Care Plan Diagnosis: (1) Gastroenteritis (2) Enteritis Goals to Promote Your Health * To prevent worsening of your condition and complications * To maintain your health at the optimal level Directions to Meet Your Goals Take your medications as prescribed Follow your dietary instruction Follow activity as directed Keep your appointments as scheduled Take your immunizations and boosters as scheduled If your symptoms worsen call your PCP, if no PCP go to Urgent Care Center or Emergency Room Smoking is Dangerous to Your Health. Avoid second hand smoke Call the 24-hour hour crisis hotline for domestic abuse at Leonila Corrales MD Feb 07, 2017 14:22
--- NOTE | 2017-02-07 14:22 | HHI.DS ---
Discharge Summary Admission Date Feb 04, 2017 at 16:05 Discharge Date: Feb 07, 2017 Admitting Diagnosis enteritis, sepsis (1) Gastroenteritis ICD Code: K52.9 - Noninfective gastroenteritis and colitis, unspecified Procedures None Brief History - From Admission History of present illness from the admitting physician This is a 46 yo male with a PMHX significant for legal blindness, hx of intermittent explosive disorder and neuropathy no longer requiring medications who presents to [facility] with complaints of generalized weakness, abdominal pain, diarrhea, nausea and vomiting for the past day. Patient reports waking up this morning feeling more tired but otherwise normal. He ate breakfast and then went to the mall per his usual routine. Shortly after arriving at the mall, he developed sudden onset of diffuse abdominal pain, shakiness, weakness and intractable vomiting and diarrhea. He denies seeing in blood in the stool or vomit but he does not see very well due to being legally blind. He states some days he is able to see better than others but today he is not able to see very well. Patient reports feeling feverish this morning but did not record a temperature. Patient states he has not felt well for the past few months due to increased fatigue. Patient reports eating pork last night but no one else is sick who ate the same dinner. He denies any change in his diet. In the ED, CT abd/pelvis was done showing multiple loops of nondistended fluid-filled small bowel with questionable focal small bowel wall thickening involving a loop of jejunum in the left upper quadrant. Overall, findings are most consistent with enteritis. Patient has a temperature of 100.6 and CBC revealed elevated white count and bandemia. Patient was also found to be hypotensive. CBC/BMP: 02/07/17 0636 02/07/17 0636 Significant Findings Laboratory Tests Test 02/05/17 06:40 02/06/17 06:50 02/07/17 06:36 Red Blood Count 4.28 MIL/MM3 (4.50-5.90) 4.44 MIL/MM3 (4.50-5.90) Hematocrit 37.8 % (39.0-51.0) Neutrophils (%) (Auto) 86.7 % (16.0-70.0) Lymphocytes (%) (Auto) 5.6 % (9.0-44.0) Lymphocytes # (Auto) 0.4 TH/MM3 (1.0-4.8) Random Glucose 117 MG/DL (74-106) 113 MG/DL (74-106) Calcium Level 7.7 MG/DL (8.5-10.1) 8.3 MG/DL (8.5-10.1) 8.3 MG/DL (8.5-10.1) Potassium Level 3.0 MEQ/L (3.5-5.1) Imaging Last Impressions Chest X-Ray 02/04/17 1115 Signed Impressions: Service Date/Time: Saturday, February 04, 2017 11:35 - CONCLUSION: 1. No acute cardiopulmonary disease. Adan Alvarado MD Abdomen/Pelvis CT 02/04/17 0000 Signed Impressions: Service Date/Time: Saturday, February 04, 2017 14:16 - CONCLUSION: 1. Multiple loops of nondistended fluid-filled small bowel with questionable focal small bowel wall thickening involving a loop of jejunum in the left upper quadrant. Overall, findings are most consistent with enteritis. Pattern would be atypical for inflammatory bowel disease. 2. Appendix is visualized and normal. Adan Alvarado MD PE at Discharge GENERAL: Patient is blind. No acute distress. CARDIOVASCULAR: Normal rate and regular rhythm without murmurs, gallops, or rubs. RESPIRATORY: Good respiratory efforts. Breath sounds equal and clear to auscultation bilaterally. GASTROINTESTINAL: Abdomen soft, non-tender, non-distended. Normal active bowel sounds MUSCULOSKELETAL: Extremities without cyanosis, or edema. NEURO: Alert & Oriented x4 to person, place, time, situation. Normal speech PSYCH: Appropriate mood and affect. Pt update on day of discharge Patient reports is feeling much better. No bowel movement or diarrhea since yesterday. Tolerating his diet. Hospital Course 46 yo male with a PMHX significant for legal blindness, hx of intermittent explosive disorder and neuropathy no longer requiring medications who presents to [facility] with complaints of generalized weakness, abdominal pain, diarrhea, nausea and vomiting for the past day. The patient met sepsis criteria on presentation. He was treated with IV fluid for resuscitation, Cipro and Flagyl. He had a couple episodes of diarrhea but that quickly resolved. In retrospect, he probably had gastroenteritis. Patient quickly improved, he is discharged on oral antimicrobials. He was counseled on proper hygiene and to follow-up outpatient with his PCP as needed. Pt Condition on Discharge: Good Discharge Disposition: Discharge Home Discharge Time: <= 30 minutes Discharge Instructions DIET: Follow Instructions for: As Tolerated, No Restrictions Activities you can perform: Regular-No Restrictions New Medications: Ciprofloxacin (Cipro) 500 Mg Tab 500 MG PO Q12HR, #10 TAB Metronidazole (Flagyl) 500 Mg Tab 500 MG PO Q8HR, #15 TAB Leonila Corrales MD Feb 07, 2017 14:22
[2017-02-07] MEDS: ONDANSETRON HCL 4 MG/2 ML VIAL IV PUSH PRN (16:28)
== END 2017-02-07 17:50 | disposition home or self-care (01) | DRG 872 ==
LOC: NEPC 10:36 → NEDA 16:05 → N04B 18:33
PROVIDERS: ADMIT Internal Medicine; ATTEND Internal Medicine
DX: A41.9 Sepsis, unspecified organism (principal); K52.9 Noninfective gastroenteritis and colitis, unspecified; H54.8 Legal blindness, as defined in USA; Z87.891 Personal history of nicotine dependence
CPT/HCPCS: 71010; 74177; 80048; 80053; 81001; 83605; 83690; 85007; 85025; 85027; 87040; 87804; 96361; 96365; 96375; J0744; J1650; J2405; J7030; Q9967